=== PATIENT | male | born 1965 | race Caucasian/White ===

== ENCOUNTER 2023-02-27 13:31 | Inpatient (IN) | payer OTHER ==
[2023-02-27 14:09] VITALS: BMI 24.4
[2023-02-27] MEDS ORDERED: NALOXONE HCL 0.4 MG/ML VIAL IM PRN (18:25)
[2023-02-27] MEDS ORDERED: BENZOCAINE/MENTHOL (CHLORASEPTIC ) LOZENGE MM PRN (18:25)
[2023-02-27] MEDS ORDERED: BENZONATATE 200 MG CAPSULE PO PRN (18:25)
[2023-02-27] MEDS ORDERED: BISMUTH SUBSALICYLATE 524 MG/30 ML PO PRN (18:25)
[2023-02-27] MEDS ORDERED: POLYETHYLENE GLYCOL (HEALTHYLAX) 3350 17 GM PACKET PO PRN (18:25)
[2023-02-27] MEDS ORDERED: IBUPROFEN 400 MG TABLET (FP) PO PRN (18:25)
[2023-02-27] MEDS ORDERED: ACETAMINOPHEN 325 MG TABLET (FP) PO PRN (18:25)
[2023-02-27] MEDS ORDERED: MAG HYDROX/AL HYDROX/SIMETH 30 ML UNIT-DOSE CUP PO PRN (18:25)
[2023-02-27] MEDS ORDERED: NALOXONE HCL (KLOXXADO) 8 MG SPRAY NS PRN (18:25)
[2023-02-27] MEDS ORDERED: guaiFENesin 600 MG TABLET.ER (FP) PO PRN (18:25)
[2023-02-27] MEDS ORDERED: LOPERAMIDE HCL 2 MG CAPSULE PO PRN (18:25)
[2023-02-27] MEDS ORDERED: MAGNESIUM HYDROX 2400MG/30ML ORAL SUSPENSION 30 ML CUP PO PRN (18:25)
[2023-02-27] MEDS ORDERED: DICYCLOMINE HCL 10 MG CAPSULE PO PRN (18:25)
[2023-02-27] MEDS ORDERED: ONDANSETRON *ODT* 4 MG TABLET SL PRN (18:25)
[2023-02-27] MEDS ORDERED: MELATONIN 5 MG TABLETS PO SCH (22:00)
[2023-02-27] MEDS: THIAMINE HCL 100 MG TABLET (FP) PO SCH (23:02)
[2023-02-27] MEDS: hydrOXYzine PAMOATE 25 MG CAPSULE (FP) PO PRN (23:03)
[2023-02-28] MEDS: PRENATAL VITAMINS W/ FOLIC ACID TABLET (FP) PO SCH (10:46)
[2023-02-28] MEDS: diazePAM 5 MG TABLET PO SCH ×3 (10:49→22:54)
[2023-02-28 11:42] LABS: HEMATOCRIT 43.7 % (35.4-49); HEMOGLOBIN 14.4 GM/dL (11.7-16.9); MCH 32.3 pg (25.7-33.7); MEAN CELL VOLUME 97.7 fl (80-96); MEAN PLT VOLUME 7.5 fl (7.5-11.1); PLATELET COUNT 269 10^3/uL (134-434); RBC 4.47 M/mm3 (4.00-5.60); RDW 13.9 % (11.9-15.9); WHITE BLOOD COUNT 5.5 K/mm3 (4.0-10.0)
[2023-02-28] MEDS ORDERED: methaDONE HCL 10 MG TABLET PO ONE (12:11)
[2023-02-28 12:26] LABS: CHLORIDE 103 mmol/L (98-107); POTASSIUM 4.6 mmol/L (3.5-5.1); SODIUM 141 mmol/L (136-145)
[2023-02-28 12:29] LABS: ALBUMIN 3.5 g/dl (3.4-5.0); ANION GAP 4 mmol/L (4-13); CALCIUM 9.7 mg/dL (8.5-10.1); CO2 34 mmol/L (21-32); GLUCOSE,RANDOM 115 mg/dL (74-106)
[2023-02-28 12:30] LABS: BLOOD UREA NITROGEN 14.1 mg/dL (7-18)
[2023-02-28 12:32] LABS: CREATININE 0.7 mg/dL (0.55-1.3); SGOT/AST 11 U/L (15-37); SGPT/ALT 19 U/L (13-61)
[2023-02-28 12:34] LABS: BILIRUBIN,TOTAL 0.4 mg/dL (0.2-1); TOT PROT 6.4 g/dl (6.4-8.2)
[2023-02-28 12:35] LABS: ALK PHOS 80 U/L (45-117)
[2023-02-28] MEDS: THIAMINE HCL 100 MG TABLET (FP) PO SCH (22:55)
[2023-03-01] MEDS ORDERED: methaDONE HCL 10 MG TABLET PO SCH (06:00)
[2023-03-01] MEDS: diazePAM 5 MG TABLET PO SCH ×3 (06:25→22:55)
[2023-03-01] MEDS: PRENATAL VITAMINS W/ FOLIC ACID TABLET (FP) PO SCH (09:55)
[2023-03-01] MEDS: hydrOXYzine PAMOATE 25 MG CAPSULE (FP) PO PRN (11:19)
[2023-03-01] MEDS: METHOCARBAMOL 500 MG TABLET PO PRN (11:19)
[2023-03-01] MEDS: SUVOREXANT 10 MG TABLET PO PRN (21:33)
[2023-03-01] MEDS: THIAMINE HCL 100 MG TABLET (FP) PO SCH (22:55)
[2023-03-02] MEDS: diazePAM 5 MG TABLET PO SCH ×2 (06:25→17:35)
[2023-03-02] MEDS: PRENATAL VITAMINS W/ FOLIC ACID TABLET (FP) PO SCH (09:47)
[2023-03-02] MEDS: IBUPROFEN 600 MG TABLET (FP) PO PRN ×2 (10:53→17:36)
[2023-03-02] MEDS: SUVOREXANT 10 MG TABLET PO PRN (22:31)
[2023-03-02] MEDS: THIAMINE HCL 100 MG TABLET (FP) PO SCH (22:31)
[2023-03-03] MEDS ORDERED: diazePAM 5 MG TABLET PO ONE (06:00)
[2023-03-03] MEDS: PRENATAL VITAMINS W/ FOLIC ACID TABLET (FP) PO SCH (09:52)
[2023-03-03] MEDS: hydrOXYzine PAMOATE 25 MG CAPSULE (FP) PO PRN (19:47)
[2023-03-03] MEDS: SUVOREXANT 10 MG TABLET PO PRN (21:48)
[2023-03-03] MEDS: THIAMINE HCL 100 MG TABLET (FP) PO SCH (22:45)
[2023-03-04 09:29] VITALS: BP 134/72; PULSE 75; RESP 16; TEMP 98.2
[2023-03-04] MEDS: PRENATAL VITAMINS W/ FOLIC ACID TABLET (FP) PO SCH (09:31)
[2023-03-04] MEDS: hydrOXYzine PAMOATE 25 MG CAPSULE (FP) PO PRN (09:37)
[2023-03-04] MEDS: METHOCARBAMOL 500 MG TABLET PO PRN (09:37)
== END 2023-03-04 10:31 | disposition home or self-care (01) | DRG 773 ==
LOC: YASAS 13:31 → Y3N 18:21 → Y6N 21:51
PROVIDERS: ADMIT Allergy & Immunology; ATTEND Surgery
PROC: HZ2ZZZZ Detoxification Services for Substance Abuse Treatment (ICD-10-PCS; principal; 2023-02-27)
DX: F10.230 Alcohol dependence with withdrawal, uncomplicated (principal); F11.20 Opioid dependence, uncomplicated; F17.210 Nicotine dependence, cigarettes, uncomplicated; F19.282 Other psychoactive substance dependence with psychoactive substance-induced sleep disorder; F19.24 Other psychoactive substance dependence with psychoactive substance-induced mood disorder; F43.10 Post-traumatic stress disorder, unspecified; F32.9 Major depressive disorder, single episode, unspecified; U07.1 COVID-19; I10 Essential (primary) hypertension; K21.9 Gastro-esophageal reflux disease without esophagitis; M54.50 Low back pain, unspecified; G89.29 Other chronic pain; Z62.810 Personal history of physical and sexual abuse in childhood; Z86.19 Personal history of other infectious and parasitic diseases
CPT/HCPCS: 36415; 80053; 80307; 85027; 86780; 87635